=== PATIENT | female | born 1950 | race Caucasian/White ===

== ENCOUNTER 2024-10-06 06:26 | Day surgery (SDC) | payer OTHER ==
[2024-10-03 09:49] LABS: BASOPHILS # (AUTO) 0.03 K/uL (0.00-0.20); BASOPHILS % (AUTO) 0.5 % (0.0-5.0); EOSINOPHILS # (AUTO) 0.18 K/uL (0.00-0.70); EOSINOPHILS % (AUTO) 3.2 % (0.0-8.0); HEMATOCRIT 38.6 % (36-48); IMMATURE GRANULOCYTE ABSOLUTE 0.02 K/uL (0-1); LYMPHOCYTES # (AUTO) 1.2 K/uL (1.0-4.8); LYMPHOCYTES % (AUTO) 21.5 % (21.0-51.0); MEAN CORPUSCULAR HEMOGLOBIN 31.7 pg (27.0-33.0); MEAN CORPUSCULAR HGB CONC 33.2 g/dL (32.0-36.0); MEAN CORPUSCULAR VOLUME 95.5 fL (79-99); MONOCYTES # (AUTO) 0.6 K/uL (0.1-1.0); MONOCYTES % (AUTO) 10.8 % (3.0-13.0); NEUTROPHILS # (AUTO) 3.6 K/uL (1.8-7.7); NEUTROPHILS % (AUTO) 63.6 % (40.0-77.0); PLATELET COUNT (AUTO) 181 K/uL (130-400); RED BLOOD CELL COUNT(AUTO) 4.04 MIL/uL (4.00-5.50); RED CELL DISTRIBUTION WIDTH 13.2 % (11.0-15.5); WHITE BLOOD COUNT (AUTO) 5.6 K/uL (4.8-10.8)
[2024-10-03 09:58] LABS: CREATININE 0.9 mg/dL (0.5-1.0); POTASSIUM 4.2 mmol/L (3.5-5.1)
[2024-10-03 10:24] LABS: INR 0.97 (0.85-1.15); PROTHROMBIN TIME 10.9 SEC (9.6-11.6)
[2024-10-03 10:25] LABS: PARTIAL THROMBOPLASTIN TIME 31.4 SEC (26.3-35.5)
[2024-10-03 10:31] VITALS: BP 179/74; PULSE 65; RESP 18; TEMP 97.5
[2024-10-06] VITALS (13 sets, daily range): BP systolic 132–166; BP diastolic 52–82; PULSE 59–67; RESP 14–19; TEMP 97–97.7
[~2024-10-06] VITALS: Ht 167.6 cm; Wt 114.3 kg
[~2024-10-06 06:26] MED LIST: ACET-2743 PO; CALCIUM PLUS D PO; CETI10CA5 PO; GABA300C PO; HYDR25TA PO; LEVO100C4 PO; LISI20TA24 PO; MULT-1247 PO; OMEP40CA21 PO; SIMV-43 PO
[2024-10-06] MEDS ORDERED: LIDOCAINE HCL MPF 1% 5ML VIAL ONE (07:22)
[2024-10-06] MEDS ORDERED: rocuRONium bROMide 10MG/1ML 5ML VL ONE ×2 (07:24→09:09)
[2024-10-06] MEDS ORDERED: MIDAZOLAM HCL 1 MG/ML 2ML VIAL ONE (07:24)
[2024-10-06] MEDS ORDERED: proPOFol 10 MG/ML 20ML VIAL IV ONE (07:24)
[2024-10-06] MEDS ORDERED: FENTanyl CITRate PF 50 MCG/1 ML 2ML VIAL ONE ×2 (07:25→09:39)
[2024-10-06] MEDS ORDERED: INDOCYANINE GREEN 25 MG VIAL IJ ONE (07:48)
[2024-10-06] MEDS ORDERED: BUPIvacaine/PF 0.25% 30ML VIAL IJ ONE (07:50)
[2024-10-06] MEDS: ceFAZolin SODIUM 2 GM VIAL IVPB ONE (08:20)
[2024-10-06] MEDS ORDERED: dexaMETHasone SOD PHOSPHATE 4 MG/ML 1ML VIAL ONE (08:33)
[2024-10-06] MEDS ORDERED: GLYCOPYRROLATE 0.2 MG/ML 5 ML VIAL ONE (08:33)
[2024-10-06] MEDS ORDERED: ketOROlac 30MG VIAL (30MG/ML) ONE (08:33)
[2024-10-06] MEDS ORDERED: NEOSTIGMINE METHYLSULFATE 1MG/ML IV ONE (08:33)
[2024-10-06] MEDS ORDERED: ondanSETRON 4MG INJ ONE (08:33)
[2024-10-06] MEDS: LACTATED RINGERS 1000ML 1,000 ML IV ONE (08:49)
[2024-10-06] MEDS: ceFAZolin SODIUM 2 GM VIAL ONE (08:49)
[2024-10-06] MEDS ORDERED: BUPIvacaine/PF 0.25% 10ML VIAL IJ ONE (09:25)
[2024-10-06] MEDS ORDERED: SUGAMMADEX SODIUM 200 MG/2 ML VIAL IV ONE (09:33)
--- NOTE | 2024-10-06 10:00 | OP ---
Operative Note: DATE OF PROCEDURE: 10/06/24 SURGEON: VIRIDIANA JONES MD TEACHER DANCING: [] ANESTHESIA: [] General ANESTHESIOLOGIST/EDGE GLUER: [] PREOPERATIVE DIAGNOSIS: [] Cholecystitis POSTOPERATIVE DIAGNOSIS: [] The same SYNOPSIS: [] PROCEDURE: [] Robotic cholecystectomy ESTIMATED BLOOD LOSS: [] Minimal INDICATIONS: [] DESCRIPTION OF PROCEDURE: [] With the patient prepped and draped we did a supraumbilical incision. Using direct technique I placed a balloon trocar. Two da Jose Alberto trochars were placed in each side of the abdomen under direct vision. A 5 mm trocar was placed in the right lateral side. I then went to the console and the robot was docked. I took all adhesions from the gallbladder and I started dissecting the triangle of Calot. we used firefly to identify the cystic duct and CBD.The cystic duct and the cystic artery were clearly identified and both were double clipped and divided. I took the gallbladder from below using cautery dissection. After the gallbladder was completely removed and adequate hemostasis was obtained I remove all the instruments from the abdomen. I undocked the robot and I came back to the bedside of the patient. I confirm hemostasis suction and irrigate and I placed the gallbladder in a bag. I injected 40 cc of Marcaine 0.25% as an abdominal tap block under direct vision. I injected 20 cc in each side of the abdomen. I took out all the trochars under direct vision and the gallbladder through the supraumbilical incision. I closed the fascia of the supraumbilical incision with a 0 Vicryl [id number]. All incisions were closed with 4-0 Monocryl and Steri-Strips. The patient was transferred stable to the recovery room. VIRIDIANA JONES MD Oct 06, 2024 10:00
[2024-10-06] MEDS: MEPERIDINE-PF 25 MG/ML SYG ONE (10:04)
== END 2024-10-06 11:30 | disposition home or self-care (01) ==
LOC: DAH 06:26
PROVIDERS: ATTEND Surgery
DX: K80.10 Calculus of gallbladder with chronic cholecystitis without obstruction (principal); I10 Essential (primary) hypertension; E03.9 Hypothyroidism, unspecified; Z88.1 Allergy status to other antibiotic agents; Z98.51 Tubal ligation status; Z79.01 Long term (current) use of anticoagulants; Z79.899 Other long term (current) drug therapy
CPT/HCPCS: 80048; 85025; 85610; 85730; 36415; 47563; 88304; A6260; J1100; A4663; J7030; J7120 ×2; J3010 ×2; J0665 ×3; J3490 ×4; J2250; J2704; J2405; J1885; J2710; J2175; J0690 ×2; C1769; A4930; A4215; A4213; A4222; A4221; A4216; A4450; A4223 ×2; A4600